=== PATIENT | male | born 1940 | race Asian ===

== ENCOUNTER 2019-11-29 12:37 | Inpatient (IN) | payer OTHER ==
[~2019-11-29] VITALS: Ht 167.6 cm; Wt 59.9 kg
[2019-11-29] MEDS ORDERED: IV NORMAL SALINE 1000 ML BAG IV ONE (12:45)
--- NOTE | 2019-11-29 13:00 | NUR ---
Patient is BROUGHT IN BY [facility] DUE TO COUGHING AND FEVER. PT IS RA, NONVERBAL BUT RESPONSIVE TO PAIN AND TOUCH. Patient is NOT able to follow /comprehend directions. CAME IN VIA GURNEY, NONAMBULATORY. No cardiovascular distress noted. Rate and rhythm are regular. No CP. No respiratory distress noted. Respirations even & unlabored with symmetrical chest rise. +jTUBE,Bowel sounds present and normoactive in all four quadrants.-DISTENTION. PER EMT: REPORTS Fever/Chills. CHRONIC KIDNEY DISEASE,LBM was yesterday. Patient is INcontinent of bowel and bladder function. KEPT WARM DRY AND COMFORTABLE ISOLATION/AIRBORNE/DROPLET PRECAUTIONS APPLIED SRX2 BED AT LOWEST POSITION
[2019-11-29 13:26] LABS: BASOPHILS % (AUTO) 0.5 % (0.0-2.0); EOSINOPHILS # (AUTO) 0.1 K/uL (0.0-0.7); EOSINOPHILS % (AUTO) 2.4 % (0.0-7.0); HEMATOCRIT 29.6 % (36.7-47.1); HEMOGLOBIN 9.8 g/dL (12.5-16.3); LYMPHOCYTES % (AUTO) 21.6 % (20.5-51.5); MEAN CORPUSCULAR HEMOGLOBIN 32.4 uug (23.8-33.4); MEAN CORPUSCULAR HGB CONC 33 g/dL (32.5-36.3); MEAN CORPUSCULAR VOLUME 97.7 fL (73.0-96.2); MONOCYTES # (AUTO) 0.6 K/uL (2.0-10.0); MONOCYTES % (AUTO) 12.6 % (0.0-11.0); NEUTROPHILS % (AUTO) 62.9 % (38.5-71.5); PLATELET COUNT (AUTO) 284 K/uL (152-348); RED BLOOD CELL COUNT(AUTO) 3.03 MIL/uL (4.06-5.63); WHITE BLOOD COUNT (AUTO) 4.8 K/uL (3.6-10.2)
[2019-11-29 13:48] LABS: ALANINE AMINOTRANSFERASE 37 U/L (16-63); ALKALINE PHOSPHATASE 95 U/L (50-136); ASPARTATE AMINOTRANSFERASE 30 U/L (15-37); BILIRUBIN,DIRECT 0.1 mg/dL (0.0-0.2); BILIRUBIN,TOTAL 0.3 mg/dL (0.2-1.0); CARBON DIOXIDE 25 mmol/L (21-32); CHLORIDE 97 mmol/L (98-107); CREATININE 2.3 mg/dL (0.6-1.3); GLUCOSE 188 mg/dL (74-106); POTASSIUM 4.9 mmol/L (3.5-5.1); TOTAL PROTEIN, SERUM 7.7 g/dL (6.4-8.2)
[2019-11-29 13:50] LABS: UREA NITROGEN, BLOOD 83 mg/dL (7-18)
--- NOTE | 2019-11-29 14:24 | NUR ---
PENDING INSURANCE PT STABLE FOR TRANSFER
[2019-11-29] MEDS ORDERED: AZITHROMYCIN IV 500 MG in IV DEXTROSE 5% 250 ML IV ONE (14:30)
[2019-11-29] MEDS ORDERED: CEFTRIAXONE 1 G in IV DEXTROSE 5% 50 ML IV ONE (14:30)
[2019-11-29] MEDS ORDERED: AZITHROMYCIN 500MG/ D5W 250ML IVPB **ER PYXIS ONLY IV ONE (14:32)
[2019-11-29] MEDS ORDERED: CEFTRIAXONE /D5W 50ML IVPB **ER PYXIS IV ONE (14:32)
--- NOTE | 2019-11-29 14:56 | NUR ---
insurance called back. Ok to admit to [facility] ERMD Aware, will call hospitalist Tele Rm Dx: Pneumonia under Carolina Huntley FORKLIFT MATERIAL HANDLER
--- NOTE | 2019-11-29 15:12 | NUR ---
JUANIS AT THE .
--- NOTE | 2019-11-29 15:24 | NUR ---
WAITING FOR CALL BACK FROM TELE FLR DUE TO NURSE ASSIGNMENT PT OK TO ADMIT TO TELE RM 316 DX: PNEUMONIA, POSSIBLE COVID19 UNDER ALCIRA OLIVAREZ Addendum: 11/29/19 at 1528 by TAMMIE WAITING FOR CALL BACK FROM TELE FLR DUE TO NURSE ASSIGNMENT PT OK TO ADMIT TO TELE RM 316 DX: PNEUMONIA, POSSIBLE COVID19 UNDER DR GUILLORY
--- NOTE | 2019-11-29 15:35 | NUR ---
HAND OFF AND SBAR GIVEN TO VIRA SCRUGGS
[2019-11-29] MEDS ORDERED: ACETAMINOPHEN 325 MG TABLET GT PRN (15:45)
[2019-11-29] MEDS ORDERED: ONDANSETRON 4 MG/2 ML VIAL IV PRN (16:00)
[2019-11-29] MEDS ORDERED: IV NS 1000 ML 1,000 ML IV PRN (16:00)
--- NOTE | 2019-11-29 16:00 | NUR ---
Transported to floor all belongings accounted for, list cosigned
--- NOTE | 2019-11-29 16:10 | NUR ---
Received patient in bed, transferred from ER via stretcher accompanied by Sharlene CONSTANTINO. Patient awake but does not respond to questions and commands. On RA sat 97%. IV site left AC 20g running Azithromycin from ER. Bilateral upper extremities are rigid. Gtube on right abdomen in place, aspirated, flushed and patent. Sacrum excoriation noted on left sacrum, picture taken and placed in chart. Cleaned and Mepilex applied. Will order wound consult. Villegas catheter in place draining 500 mL clear yellow urine. Bed locked in lowest position with siderails 2x up. Call light within reach. Will continue to monitor.
[2019-11-29 17:03] VITALS: BP 121/71
[2019-11-29] MEDS ORDERED: GLUCERNA 1.2 1000ML LIQUID GT SCH (20:15)
[2019-11-29] MEDS ORDERED: DOCUSATE SODIUM 100 MG CAPSULE PO SCH (21:00)
[2019-11-29 21:32] VITALS: BP 148/67
--- NOTE | 2019-11-29 22:00 | NUR ---
Received patient awake in bed, nonverbal. Arouses to name and touch. No distress noted. On contact/droplet precaution for r/o COVID. Patient has g-tube flushes well. IVF running on the left AC. notified Dr. Siddiqui about patient temp 102.3 ordered STAT blood culture. When gas plant worker came, says he's not allowed to go into COVID rooms. Explained that I have not drawn blood before, but gas plant worker refused to go in. I attempted multiple times to do blood culture, but patient veins kept blowing, told gas plant worker, but he still did not want to go into room. Endorse to Dr. Siddiqui that was unable to get blood culture, patients temp went down to 101 on its own, applied cooling measures, will reassess. Dr. Siddiqui also ordered to start Zosyn 2.25gm. Safety measures initiated. Will continue to monitor.
[2019-11-29] MEDS: ATORVASTATIN 10 MG TABLET GT SCH (22:39)
[2019-11-29] MEDS: DOCUSATE SODIUM 100 MG/10 ML LIQUID UDC GT SCH (22:39)
[2019-11-29] MEDS: CARVEDILOL 3.125 MG TABLET GT SCH (22:39)
[2019-11-29] MEDS ORDERED: PIPERACILLIN/TAZOBACTAM/D5W 100 ML ONE (23:15)
[2019-11-29 23:32] LABS: *BILIRUBIN,URIN NEGATIVE (NEGATIVE); *BLOOD, URINE 1+ (NEGATIVE); *CLARITY,URINE CLEAR (CLEAR); *COLOR,URINE YELLOW (YELLOW); *KETONES,URINE NEGATIVE (NEGATIVE); *UROBILINOGEN,URINE 0.2 E.U./dl (NORMAL); LEUKOCYTE ESTERASE ,URINE NEGATIVE (NEGATIVE); NITRITE, URINE NEGATIVE (NEGATIVE); UGLUCOSE NEGATIVE (NEGATIVE)
[2019-11-29] MEDS: PIPERACILLIN/TAZO 2.25 G in IV DEXTROSE 5% 50 ML IV SCH (23:32)
[2019-11-29 23:47] LABS: BACTERIA,URINE NONE SEEN /HPF (NONE SEEN); RBC,URINE 20-50 /HPF (0-3); SQUAMOUS EPITHELIAL CELL,UR FEW /HPF (NONE SEEN); WBC,URINE 0-3 /HPF (0-3)
[2019-11-30] VITALS: BP 156/64
[2019-11-30] MEDS ORDERED: PIPERACILLIN/TAZO 2.25 G in IV DEXTROSE 5% 50 ML IV SCH ×2
--- NOTE | 2019-11-30 00:50 | NUR ---
Patient still with temp of 101.4 after cooling measures were implemented, administered PRN Tylenol. Other vitals WNL. Will continue to monitor.
--- NOTE | 2019-11-30 01:49 | NUR ---
Dr. Siddiqui also notified about continuing GT feeding from SNF. Started at 2240, checked residual was 5cc, tolerating well.
[2019-11-30 04:00] VITALS: BP 139/45
[2019-11-30] MEDS: PIPERACILLIN/TAZO 2.25 G in IV DEXTROSE 5% 50 ML IV SCH (05:25)
--- NOTE | 2019-11-30 06:28 | NUR ---
Patient slept well, no distress noted. Turned and repositioned patient. IVF infusing well on the left AC. Tolerating tube feeding. Vitals WNL. No fever after Tylenol given. Will endorse to next shift.
[2019-11-30] MEDS ORDERED: GLUCERNA 1.2 1000ML LIQUID GT PRN (07:07)
[2019-11-30 07:11] LABS: BASOPHILS % (AUTO) 0.4 % (0.0-2.0); EOSINOPHILS % (AUTO) 0.6 % (0.0-7.0); HEMATOCRIT 27.9 % (36.7-47.1); HEMOGLOBIN 9.5 g/dL (12.5-16.3); LYMPHOCYTES # (AUTO) 1.2 K/uL (20.0-40.0); LYMPHOCYTES % (AUTO) 27.3 % (20.5-51.5); MEAN CORPUSCULAR HEMOGLOBIN 33.2 uug (23.8-33.4); MEAN CORPUSCULAR HGB CONC 34 g/dL (32.5-36.3); MEAN CORPUSCULAR VOLUME 97.7 fL (73.0-96.2); MONOCYTES # (AUTO) 0.5 K/uL (2.0-10.0); MONOCYTES % (AUTO) 11.8 % (0.0-11.0); NEUTROPHILS # (AUTO) 2.7 K/uL (1.8-8.9); NEUTROPHILS % (AUTO) 59.9 % (38.5-71.5); PLATELET COUNT (AUTO) 249 K/uL (152-348); RED BLOOD CELL COUNT(AUTO) 2.85 MIL/uL (4.06-5.63); WHITE BLOOD COUNT (AUTO) 4.6 K/uL (3.6-10.2)
[2019-11-30 07:37] LABS: IRON, SERUM 18 ug/dL (50-175)
[2019-11-30 08:00] VITALS: BP 126/48
[2019-11-30 08:00] LABS: ALANINE AMINOTRANSFERASE 31 U/L (16-63); ALKALINE PHOSPHATASE 76 U/L (50-136); ASPARTATE AMINOTRANSFERASE 40 U/L (15-37); BILIRUBIN,TOTAL 0.3 mg/dL (0.2-1.0); CARBON DIOXIDE 23 mmol/L (21-32); CHLORIDE 100 mmol/L (98-107); CHOLESTEROL 133 mg/dL (<200); CREATININE 2.2 mg/dL (0.6-1.3); GLUCOSE 196 mg/dL (74-106); HDL CHOLESTEROL 25 mg/dL (40-60); MAGNESIUM 2.6 mg/dL (1.8-2.4); PHOSPHOROUS 4.2 mg/dL (2.5-4.9); POTASSIUM 4.5 mmol/L (3.5-5.1); TOTAL PROTEIN, SERUM 7.3 g/dL (6.4-8.2); TRIGLYCERIDES 621 MG/DL (30-150); UREA NITROGEN, BLOOD 70 mg/dL (7-18)
--- NOTE | 2019-11-30 08:00 | NUR ---
Received pt. resting in bed oriented to self. Pt. has IV in L AC 20 gauge intact patent running prescribed fluids. Pt. appears in no distress/ pain. Pt. has elevated temperature of 101. 2 provided pt. with tylenol and started cooling measures. rteviño catheter in place draining clear yellow urine. Pt. O2 Saturating at 93 RA. Will put pt. on NC to keep O2 saturation elevated. G tube in place patent <5 cc of residual running glucerna 1.2. Sputum culture done and sent to lab, ABG done, Chest XR done. Safety measures in place. call light within reach. will continue to monitor pt.
[2019-11-30 08:56] LABS: THYROID STIMULATING HORMONE 0.444 mIU/mL (0.358-3.740)
[2019-11-30] MEDS ORDERED: Medication Not On Formulary EA (Ferrous Sulfate 330 MG) GT SCH (09:00)
[2019-11-30] MEDS ORDERED: Medication Not On Formulary EA (Multivitamins (Multivitamin) 1 TAB) GT SCH (09:00)
[2019-11-30 09:09] LABS: ABG BASE EXCESS -3.4 mmol/L; ABG HCO3 20.8 mmol/L; ABG PCO2 33.8 mmHg (35.0-45.0); ABG PH 7.406 (7.350-7.450); ABG PO2 71.3 mmHg (75.0-100.0); ABG SITE RIGHT RADIAL; ABG TOTAL HEMOGLOBIN 9.5 G/dL (13.5-18.0); COHb 0.9 % (0.5-1.5); MetHb 0.3 % (0.0-1.5); O2Hb 91.7 % (94.0-97.0); VENT MODE room air
[2019-11-30] MEDS: MULTIVITAMINS,THERAPEUTIC TABLET GT SCH (09:36)
[2019-11-30] MEDS: ASPIRIN 325 MG TABLET GT SCH (09:36)
[2019-11-30] MEDS: PANTOPRAZOLE ORAL SUSPENSION 40 MG SUSPDR.PKT GT SCH (09:36)
[2019-11-30] MEDS: GABAPENTIN 100 MG CAPSULE GT SCH (09:36)
[2019-11-30] MEDS: CARVEDILOL 3.125 MG TABLET GT SCH ×2 (09:36→20:42)
[2019-11-30] MEDS: FERROUS SULFATE 300 MG/5 ML LIQUID UDC GT SCH (09:37)
[2019-11-30] MEDS: ACETAMINOPHEN 650 MG/20.3 ML LIQUID UDC GT PRN ×2 (09:37→20:37)
--- NOTE | 2019-11-30 11:39 | NUR ---
Pt. does not have fever anymore temperature taken after an hour at 97.8. BP is low at 94/[address] Siddiqui. Awaiting response.
[2019-11-30] MEDS ORDERED: DEXTROSE 50% 50 ML DISP.SYRIN IV PRN (12:00)
[2019-11-30] MEDS ORDERED: IV NORMAL SALINE 500 ML IV ONE (12:00)
[2019-11-30] MEDS: BLOOD SUGAR DIAGNOSTIC 1 EACH STRIP VI SCH ×2 (12:36→17:50)
[2019-11-30] MEDS: INSULIN REGULAR, HUMAN 300 UNIT/3 ML VIAL SQ PRN ×2 (12:45→18:24)
[2019-11-30] MEDS: PIPERACILLIN/TAZOBACTAM/D5W 3.375 G in PREMIXED 1 EACH IV SCH ×2 (13:15→22:31)
[2019-11-30] MEDS: IV NS 1000 ML 1,000 ML IV PRN (13:18)
[2019-11-30 16:00] VITALS: BP 125/47
--- NOTE | 2019-11-30 17:51 | NUR ---
Speech Therapist examined pt. around 1420 for swallow evaluation per Speech Therapist pt. was coughing. Around 1620 Pt. O2 saturation at 89% on venturi mask 28%. Respiratory Therapist examined pt. and increased venturi mask to 55% O2 saturation increased to low 90s. Pt. now on 100% non rebreather mask saturating at 92-94%. Dr. Artur trejo ordered ABGs and chest x ray. RT suctioned pt. At 1730 O2 saturation on 100% non rebreather at 95-96%. Dr. Artur trejo. Instructed to contact Dr. Novak. Will call Dr. Novak. Addendum: 11/30/19 at 1752 by JULIET DAUGHERTY RN Wrong Pt. Notes written are for a different pt. Does not apply to pt in room 316
[2019-11-30 20:15] VITALS: BP 136/45
[2019-11-30] MEDS: ATORVASTATIN 10 MG TABLET GT SCH (20:37)
[2019-11-30] MEDS: DOCUSATE SODIUM 100 MG/10 ML LIQUID UDC GT SCH (20:42)
[2019-12-01 00:15] VITALS: BP 135/54
[2019-12-01] MEDS: BLOOD SUGAR DIAGNOSTIC 1 EACH STRIP VI SCH ×4 (00:50→17:06)
[2019-12-01] MEDS: INSULIN REGULAR, HUMAN 300 UNIT/3 ML VIAL SQ PRN ×4 (01:08→17:08)
[2019-12-01] MEDS: IV NS 1000 ML 1,000 ML IV PRN ×2 (03:51→20:29)
[2019-12-01 04:12] VITALS: BP 135/60
[2019-12-01] MEDS: PIPERACILLIN/TAZOBACTAM/D5W 3.375 G in PREMIXED 1 EACH IV SCH ×3 (05:33→21:16)
[2019-12-01] MEDS: ACETAMINOPHEN 650 MG/20.3 ML LIQUID UDC GT PRN (05:33)
[2019-12-01 06:30] LABS: BASOPHILS % (AUTO) 0.3 % (0.0-2.0); MONOCYTES # (AUTO) 0.5 K/uL (2.0-10.0); WHITE BLOOD COUNT (AUTO) 4.7 K/uL (3.6-10.2)
[2019-12-01 06:43] LABS: EOSINOPHILS % (AUTO) 0.5 % (0.0-7.0); LYMPHOCYTES # (AUTO) 0.8 K/uL (20.0-40.0); LYMPHOCYTES % (AUTO) 17.2 % (20.5-51.5); MEAN CORPUSCULAR HEMOGLOBIN 33.5 uug (23.8-33.4); MEAN CORPUSCULAR HGB CONC 34 g/dL (32.5-36.3); MEAN CORPUSCULAR VOLUME 97.9 fL (73.0-96.2); MONOCYTES % (AUTO) 9.7 % (0.0-11.0); NEUTROPHILS # (AUTO) 3.4 K/uL (1.8-8.9); NEUTROPHILS % (AUTO) 72.3 % (38.5-71.5); PLATELET COUNT (AUTO) 202 K/uL (152-348); RED BLOOD CELL COUNT(AUTO) 2.51 MIL/uL (4.06-5.63)
[2019-12-01 06:44] LABS: HEMATOCRIT 24.5 % (36.7-47.1); HEMOGLOBIN 8.4 g/dL (12.5-16.3)
[2019-12-01 06:49] LABS: ALANINE AMINOTRANSFERASE 29 U/L (16-63); ALKALINE PHOSPHATASE 89 U/L (50-136); ASPARTATE AMINOTRANSFERASE 38 U/L (15-37); BILIRUBIN,TOTAL 0.3 mg/dL (0.2-1.0); CARBON DIOXIDE 23 mmol/L (21-32); CHLORIDE 109 mmol/L (98-107); CREATINE KINASE, TOTAL 690 U/L (39-308); CREATININE 1.8 mg/dL (0.6-1.3); GLUCOSE 198 mg/dL (74-106); MAGNESIUM 2.3 mg/dL (1.8-2.4); POTASSIUM 4.9 mmol/L (3.5-5.1); TOTAL PROTEIN, SERUM 6.7 g/dL (6.4-8.2); UREA NITROGEN, BLOOD 55 mg/dL (7-18)
[2019-12-01 07:20] LABS: FERRITIN 2429 ng/mL (26-388)
--- NOTE | 2019-12-01 08:30 | NUR ---
Received pt. resting in bed in semi fowlers position eyes open. Pt. appears in no distress/ pain. Pt. appears with no SOB/ difficulty breathing. Pt. on 1 L NC. IV in L AC 20 gauge intact patent running prescribed fluid. Pt. on tele monitor sinus rhythm. Villegas catheter in place draining clear yellow urine. Pt. had BM last night. G tube in place. Abdomen non tender, active bowel sounds. pt. does not have a fever at this time. Applied cooling towel to forehead for preventative measures. safety measures in place. call light within reach. will continue to monitor pt.
[2019-12-01] MEDS: MULTIVITAMINS,THERAPEUTIC TABLET GT SCH (08:59)
[2019-12-01] MEDS: GABAPENTIN 100 MG CAPSULE GT SCH (08:59)
[2019-12-01] MEDS: FERROUS SULFATE 300 MG/5 ML LIQUID UDC GT SCH (08:59)
[2019-12-01] MEDS: PANTOPRAZOLE ORAL SUSPENSION 40 MG SUSPDR.PKT GT SCH (08:59)
[2019-12-01] MEDS: ASPIRIN 325 MG TABLET GT SCH (08:59)
[2019-12-01] MEDS: CARVEDILOL 3.125 MG TABLET GT SCH (09:00)
[2019-12-01 09:51] VITALS: BP 114/51
--- NOTE | 2019-12-01 10:51 | NUR ---
WOUND CARE CONSULT: REVIEWED CHART, NURSING DOCUMENTATION INCLUDING PHOTOS WHICH SHOW SACRAL WOUND, AT LEAST PARTIAL THICKNESS, WHICH EXTENDS TO BUTTOCKS, PRESENT ON ADMISSION. RECOMMENDATIONS MADE FOR WOUND CARE AND SKIN PROTECTION. DISCUSSED WITH NURSING STAFF. FIRST STEP LOW AIRLOSS MATTRESS ORDERED. MD IN AGREEMENT WITH PLAN OF CARE.
[2019-12-01] MEDS ORDERED: Z GUARD REMEDY PASTE 57 GM TUBE TOP PRN (11:00)
--- NOTE | 2019-12-01 11:40 | NUR ---
Attempted to take pt. off [address] Novak. Pt. saturating in low 90s. 90-92 on Room Air. Put pt. back on 1 L NC. Pt. saturation is at 96-97% on 1 L. Pt. had BM. Cleaned pt. with SUPPLIER SPECIALIST. Pt. is warm to touch, no fever. temperature at 98 F. Applied new cooling towel for preventative measures. BP is low systolic in low 90s- high 80s. Diastolic in 40s. Legs elevated. Dr. Siddiqui aware. NS bolus of 500 cc ordered.
[2019-12-01 11:58] VITALS: BP 95/40
[2019-12-01] MEDS ORDERED: IV NORMAL SALINE 500 ML IV ONE (12:15)
--- NOTE | 2019-12-01 14:21 | NUR ---
Pt. on 1L saturating in low 90s highest 92. Elevated Nasal Canula to 2L pt. saturating in mid 90s 94-96%. Pt. has non productive cough. Suctioning as needed. Clear secretions noted. pt. does not have temperature. Cool cloth on forehead for prevention. BP is 104/70 and 106/45 post [address] Siddiqui on updated BP. No new orders. Pt. appears comfortable. Safety measures in place. will continue to monitor pt.
[2019-12-01 16:23] VITALS: BP 113/66
--- NOTE | 2019-12-01 18:56 | NUR ---
Throughout shift pt. did not have a temperature. pt. O2 saturation on 2 L ranging from 92-95%. Pt. does have productive cough, suctioned pt. as needed. Small amount of white secretions suctioned <5 cc. pt. appears resting comfortably. safety measures in place. will endorse to pm nurse
[2019-12-01 19:02] VITALS: BP 124/54
[2019-12-01] MEDS: ATORVASTATIN 10 MG TABLET GT SCH (20:27)
[2019-12-01] MEDS: DOCUSATE SODIUM 100 MG/10 ML LIQUID UDC GT SCH (20:28)
[2019-12-01] MEDS: Z GUARD REMEDY PASTE 57 GM TUBE TOP SCH (20:28)
[2019-12-02] VITALS (12 sets, daily range): BP systolic 114–136; BP diastolic 51–85
--- NOTE | 2019-12-02 00:09 | NUR ---
patient vomited, abdomen is distended, still having loose BM. Cough noted, suctioned the nasopharynx and mouth, oral care done. Stopped the feeding for now. Per Sharon Herrera, TREATMENT SPECIALIST, order chest xray and hold the the feeding until morning rounds. Current temp 102.3, will give tylenol
[2019-12-02] MEDS: ACETAMINOPHEN 650 MG/20.3 ML LIQUID UDC GT PRN ×3 (00:22→21:25)
[2019-12-02] MEDS: BLOOD SUGAR DIAGNOSTIC 1 EACH STRIP VI SCH ×5 (00:42→23:35)
[2019-12-02] MEDS: INSULIN REGULAR, HUMAN 300 UNIT/3 ML VIAL SQ PRN ×3 (00:43→23:39)
[2019-12-02] MEDS: HYDROXYCHLOROQUINE SULFATE 200 MG TABLET PEG SCH ×2 (04:11→09:03)
[2019-12-02] MEDS: PIPERACILLIN/TAZOBACTAM/D5W 3.375 G in PREMIXED 1 EACH IV SCH ×3 (06:09→21:25)
[2019-12-02] MEDS: MULTIVITAMINS,THERAPEUTIC TABLET GT SCH (09:02)
[2019-12-02] MEDS: FERROUS SULFATE 300 MG/5 ML LIQUID UDC GT SCH (09:02)
[2019-12-02] MEDS: ASPIRIN 81 MG TAB.CHEW GT SCH (09:02)
[2019-12-02] MEDS: PANTOPRAZOLE ORAL SUSPENSION 40 MG SUSPDR.PKT GT SCH (09:02)
[2019-12-02] MEDS: GABAPENTIN 100 MG CAPSULE GT SCH (09:02)
[2019-12-02] MEDS: Z GUARD REMEDY PASTE 57 GM TUBE TOP SCH ×2 (09:03→22:19)
--- NOTE | 2019-12-02 09:30 | NUR ---
Patient noted to have distended belly, and temp of 100 F. Patient restless, and taking off clothes. Patient repositioned and made comfortable. Small amount of fluid given with medications. Patient tolerated well.
[2019-12-02 10:07] LABS: BASOPHILS % (AUTO) 0.3 % (0.0-2.0); EOSINOPHILS % (AUTO) 0.3 % (0.0-7.0); HEMATOCRIT 26.5 % (36.7-47.1); HEMOGLOBIN 8.6 g/dL (12.5-16.3); LYMPHOCYTES # (AUTO) 1.2 K/uL (20.0-40.0); LYMPHOCYTES % (AUTO) 18.2 % (20.5-51.5); MEAN CORPUSCULAR HEMOGLOBIN 32.4 uug (23.8-33.4); MEAN CORPUSCULAR HGB CONC 33 g/dL (32.5-36.3); MEAN CORPUSCULAR VOLUME 99.7 fL (73.0-96.2); MONOCYTES # (AUTO) 0.6 K/uL (2.0-10.0); MONOCYTES % (AUTO) 9.2 % (0.0-11.0); NEUTROPHILS # (AUTO) 4.6 K/uL (1.8-8.9); PLATELET COUNT (AUTO) 186 K/uL (152-348); RED BLOOD CELL COUNT(AUTO) 2.66 MIL/uL (4.06-5.63); WHITE BLOOD COUNT (AUTO) 6.4 K/uL (3.6-10.2)
[2019-12-02 11:27] LABS: CARBON DIOXIDE 21 mmol/L (21-32); CHLORIDE 113 mmol/L (98-107); FERRITIN 2718 ng/mL (26-388); GLUCOSE 167 mg/dL (74-106); LACTATE DEHYDROGENASE 412 U/L (85-227); MAGNESIUM 2.4 mg/dL (1.8-2.4); PHOSPHOROUS 2.9 mg/dL (2.5-4.9); POTASSIUM 4.6 mmol/L (3.5-5.1); UREA NITROGEN, BLOOD 45 mg/dL (7-18)
[2019-12-02] MEDS: IV NS 1000 ML 1,000 ML IV PRN ×2 (11:50→18:23)
[2019-12-02 16:55] LABS: ABG BASE EXCESS -8.2 mmol/L; ABG HCO3 15.4 mmol/L; ABG PCO2 25.5 mmHg (35.0-45.0); ABG PH 7.398 (7.350-7.450); ABG PO2 62.6 mmHg (75.0-100.0); ABG SITE RIGHT RADIAL; ABG TOTAL HEMOGLOBIN 9.8 G/dL (13.5-18.0); COHb 0.6 % (0.5-1.5); MetHb 0.2 % (0.0-1.5); O2Hb 90.8 % (94.0-97.0); VENT MODE Nasal Cannula
--- NOTE | 2019-12-02 17:00 | NUR ---
First call to Alcohol And Drug Counselor Dr. Novak to report resulted ABG's ordered by Sugar Mill Worker Dr. Shelton at this time unable to speak or have a call through to exchange the call drops X2 20 minutes apart. Chain of command follow and supervisor slashing department called to make contact with
--- NOTE | 2019-12-02 17:26 | NUR ---
Patient down from room 316 accompanied by 2 rn's. HR. of 97, 133/75. Saturation of 70 and below tachypnea, patient on nasal canula 3L. Patient cold to touch with labor breathing, cyanotic and mottled. Electrical Control Assembler present and talking to pt's daughter.
--- NOTE | 2019-12-02 17:31 | NUR ---
Grain Loader Dr. Shelton in the unit upon patient arrival and aware of troponin and pt's current condition. At this time spoke with pt's daughter on the phone and informed her of care plan and her father's current deteriorating condition. As reported by . continue with care plan with no heroic measures.
--- NOTE | 2019-12-02 17:57 | NUR ---
At this time spoke with Dr. Novak and inform him of recent ABG's. Orders to continue with current care plan received informed of pt's daughter decision to continue with DNR/DNI with no heroic measures as told to Dr. Shelton.
--- NOTE | 2019-12-02 18:48 | NUR ---
Patient left on NC 6L and SM 8 Liter with saturation above 95%. Hemodinamically stable. afebrile.
--- NOTE | 2019-12-02 19:45 | NUR ---
Received pt resting in bed, droplet precautions noted. Pt on NC 6L and SM 8L/min, O2 sats up to 98%. No acute distress noted. NSR on monitor. F/C in place. Safety precautions maintained. VSS, afebrile. Skin assessment done. Pt turned and repositioned. Continue antibiotic therapy. Continue plan of care.
[2019-12-02] MEDS: DOCUSATE SODIUM 100 MG/10 ML LIQUID UDC GT SCH (21:24)
[2019-12-02] MEDS: MORPHINE SULFATE 2 MG/1 ML DISP.SYRIN IV PRN (21:26)
--- NOTE | 2019-12-02 21:30 | NUR ---
Pt had episode of minimal emesis noted. HOB remains elevated. Medicated with Zofran for nausea/vomiting. Continue to monitor pt.
[2019-12-02 23:19] LABS: *OCCULT BLOOD STOOL POSITIVE (NEGATIVE)
[2019-12-02] MEDS: ATORVASTATIN 10 MG TABLET GT SCH (23:19)
[2019-12-03] VITALS (24 sets, daily range): BP systolic 101–147; BP diastolic 29–81
--- NOTE | 2019-12-03 | NUR ---
No vomiting noted at this time. HOB elevated maintained. Pt resting comfortably in bed. VSS, afebrile. Continue to monitor.
[2019-12-03] MEDS: MORPHINE SULFATE 2 MG/1 ML DISP.SYRIN IV PRN ×4 (01:43→20:42)
--- NOTE | 2019-12-03 02:30 | NUR ---
Pt awake with sudden labored breathing. BP: 147/81, RR 40, HR 133, O2 at 82% via 4L NC. HOB elevated. Placed nonrebreather mask 15L/min. O2 sats went up to 92-93%. Paged EPIC senior fire protection engineer, DEVIKA ELI. New orders received, ABG and CXR stat. Continue to monitor closely.
[2019-12-03] MEDS ORDERED: MORPHINE SULFATE 2 MG/1 ML DISP.SYRIN IV ONE (02:45)
[2019-12-03 03:37] LABS: ABG HCO3 13.3 mmol/L; ABG PCO2 25.2 mmHg (35.0-45.0); ABG PH 7.341 (7.350-7.450); ABG PO2 114.5 mmHg (75.0-100.0); ABG SITE RIGHT RADIAL; ABG TOTAL HEMOGLOBIN 9.6 G/dL (13.5-18.0); COHb 0.3 % (0.5-1.5); MetHb 0.2 % (0.0-1.5); O2Hb 97.9 % (94.0-97.0)
[2019-12-03] MEDS: PIPERACILLIN/TAZOBACTAM/D5W 3.375 G in PREMIXED 1 EACH IV SCH ×3 (05:23→21:25)
[2019-12-03] MEDS: BLOOD SUGAR DIAGNOSTIC 1 EACH STRIP VI SCH ×4 (05:23→23:07)
--- NOTE | 2019-12-03 05:40 | NUR ---
Received pt resting in bed, pt on nonrebreather 15L/min. O2 sats up to 100%. Pt unable to follow commands but withdraws to painful stimuli. NSR on monitor. Pt running NS at 60 cc/hr. VSS, afebrile. Droplet precautions maintained. HOB elevated. Pt turned and repositioned. Skin check done. Safety precautions, no acute distress noted. Continue antibiotic therapy. Continue plan of care. Addendum: 12/04/19 at 0543 by MARICARMEN YUN RN WRONG DATE AND TIME PLEASE DISREGARD FOR 12/03/191944
[2019-12-03] MEDS ORDERED: HYDROXYCHLOROQUINE SULFATE 200 MG TABLET PEG SCH (06:00)
[2019-12-03] MEDS: INSULIN REGULAR, HUMAN 300 UNIT/3 ML VIAL SQ PRN ×2 (06:09→23:09)
--- NOTE | 2019-12-03 06:19 | NUR ---
AM care rendered. Pt kept clean and dry. Pt turned and repositioned. Pt on nonrebreather 15L/min with O2 sats up to 100%. Placed on simple mask 10L but pt did not tolerate and desated to 84%. PORTFOLIO SPECIALISTWander, made aware. Nonrebreather back on. NSR on monitor. No acute distress noted. Pt OB stool positive. No s/s of bleeding noted on shift. Moderate amount BM x2, color greenish - brown. F/C in place. HOB elevated maintained. Safety precautions observed. NPO diet. VSS, afebrile. Continue to monitor. Continue plan of care. Addendum: 12/03/19 at 0629 by MARICARMEN YUN RN Certified Genetic Counselor aware of midline insertion order. Continue plan of care.
[2019-12-03 07:41] LABS: BASOPHILS % (AUTO) 0.3 % (0.0-2.0); EOSINOPHILS % (AUTO) 0.1 % (0.0-7.0); HEMOGLOBIN 8.7 g/dL (12.5-16.3); LYMPHOCYTES # (AUTO) 0.5 K/uL (20.0-40.0); LYMPHOCYTES % (AUTO) 10.3 % (20.5-51.5); MEAN CORPUSCULAR HEMOGLOBIN 31.9 uug (23.8-33.4); MEAN CORPUSCULAR HGB CONC 32 g/dL (32.5-36.3); MEAN CORPUSCULAR VOLUME 99.2 fL (73.0-96.2); MONOCYTES # (AUTO) 0.4 K/uL (2.0-10.0); MONOCYTES % (AUTO) 8.3 % (0.0-11.0); NEUTROPHILS # (AUTO) 4.3 K/uL (1.8-8.9); PLATELET COUNT (AUTO) 174 K/uL (152-348); RED BLOOD CELL COUNT(AUTO) 2.72 MIL/uL (4.06-5.63); WHITE BLOOD COUNT (AUTO) 5.3 K/uL (3.6-10.2)
--- NOTE | 2019-12-03 08:00 | NUR ---
Pulmonary services, Dr. Novak in the unit to see and examine patient, full report given see orders.
[2019-12-03 08:09] LABS: ALANINE AMINOTRANSFERASE 25 U/L (16-63); ALKALINE PHOSPHATASE 47 U/L (50-136); ASPARTATE AMINOTRANSFERASE 73 U/L (15-37); BILIRUBIN,TOTAL 0.3 mg/dL (0.2-1.0); CARBON DIOXIDE 21 mmol/L (21-32); CHLORIDE 115 mmol/L (98-107); CREATININE 2.2 mg/dL (0.6-1.3); GLUCOSE 150 mg/dL (74-106); MAGNESIUM 2.4 mg/dL (1.8-2.4); PHOSPHOROUS 2.9 mg/dL (2.5-4.9); POTASSIUM 4.7 mmol/L (3.5-5.1); TOTAL PROTEIN, SERUM 6.6 g/dL (6.4-8.2); UREA NITROGEN, BLOOD 43 mg/dL (7-18)
[2019-12-03] MEDS: MULTIVITAMINS,THERAPEUTIC TABLET GT SCH (08:18)
[2019-12-03] MEDS: FERROUS SULFATE 300 MG/5 ML LIQUID UDC GT SCH (08:18)
[2019-12-03] MEDS: GABAPENTIN 100 MG CAPSULE GT SCH (08:18)
[2019-12-03] MEDS: PANTOPRAZOLE ORAL SUSPENSION 40 MG SUSPDR.PKT GT SCH (08:18)
[2019-12-03] MEDS: ASPIRIN 81 MG TAB.CHEW GT SCH (08:18)
[2019-12-03] MEDS: Z GUARD REMEDY PASTE 57 GM TUBE TOP SCH ×2 (08:19→20:08)
--- NOTE | 2019-12-03 08:30 | NUR ---
a call from pt's daughter Ms. Dias Champ she was update on her dad's current condition and care plan.
--- NOTE | 2019-12-03 13:57 | NUR ---
Cardiology services, Dr. Shelton in the unit to see and examine patient.
[2019-12-03] MEDS: IV NS 1000 ML 1,000 ML IV PRN (14:24)
[2019-12-03] MEDS ORDERED: TOCILIZUMAB 400 MG in IV NORMAL SALINE 80 ML IV ONE (15:15)
[2019-12-03 16:09] LABS: FERRITIN 2659 ng/mL (26-388); LACTATE DEHYDROGENASE 588 U/L (85-227)
--- NOTE | 2019-12-03 19:45 | NUR ---
Received pt resting in bed, pt on nonrebreather 15L/min. O2 sats up to 100%. Pt unable to follow commands but withdraws to painful stimuli. NSR on monitor. Pt running NS at 60 cc/hr. VSS, afebrile. Droplet precautions maintained. HOB elevated. Pt turned and repositioned. Skin check done. Safety precautions, no acute distress noted. Continue antibiotic therapy. Continue plan of care.
[2019-12-03] MEDS: ATORVASTATIN 10 MG TABLET GT SCH (20:07)
[2019-12-03] MEDS: DOCUSATE SODIUM 100 MG/10 ML LIQUID UDC GT SCH (20:08)
[2019-12-03] MEDS: ACETAMINOPHEN 650 MG/20.3 ML LIQUID UDC GT PRN (20:42)
[2019-12-04] VITALS (15 sets, daily range): BP systolic 0–139; BP diastolic 0–74
[2019-12-04] MEDS: MORPHINE SULFATE 2 MG/1 ML DISP.SYRIN IV PRN ×2 (03:14→08:19)
[2019-12-04] MEDS: ACETAMINOPHEN 650 MG/20.3 ML LIQUID UDC GT PRN (03:38)
[2019-12-04] MEDS: BLOOD SUGAR DIAGNOSTIC 1 EACH STRIP VI SCH ×3 (05:20→16:18)
[2019-12-04] MEDS: PIPERACILLIN/TAZOBACTAM/D5W 3.375 G in PREMIXED 1 EACH IV SCH ×2 (05:21→13:34)
[2019-12-04] MEDS: INSULIN REGULAR, HUMAN 300 UNIT/3 ML VIAL SQ PRN (05:21)
[2019-12-04 05:32] LABS: BASOPHILS % (AUTO) 0.2 % (0.0-2.0); EOSINOPHILS % (AUTO) 0.2 % (0.0-7.0); HEMATOCRIT 26.7 % (36.7-47.1); HEMOGLOBIN 8.6 g/dL (12.5-16.3); LYMPHOCYTES # (AUTO) 0.6 K/uL (20.0-40.0); MEAN CORPUSCULAR HEMOGLOBIN 32.4 uug (23.8-33.4); MEAN CORPUSCULAR HGB CONC 32 g/dL (32.5-36.3); MEAN CORPUSCULAR VOLUME 100.6 fL (73.0-96.2); MONOCYTES # (AUTO) 0.5 K/uL (2.0-10.0); MONOCYTES % (AUTO) 7.6 % (0.0-11.0); NEUTROPHILS # (AUTO) 5.9 K/uL (1.8-8.9); PLATELET COUNT (AUTO) 172 K/uL (152-348); RED BLOOD CELL COUNT(AUTO) 2.66 MIL/uL (4.06-5.63); WHITE BLOOD COUNT (AUTO) 7.1 K/uL (3.6-10.2)
--- NOTE | 2019-12-04 05:43 | NUR ---
AM care rendered. Pt had episode of desaturation during the night, O2 sats went down to 89%. Supplemental NC provided to 4L, pt up to 100%. Pt remains on nonrebreather 15L/min with O2 sats up to 99%. No acute distress noted at this time. Pt kept clean and dry, pt turned and repositioned. No new skin breakdown. VSS, afebrile. No s/s of bleeding. No n/v during the night. Droplet precautions maintained. NPO diet. Continue antibiotic therapy. Continue plan of care.
[2019-12-04 06:20] LABS: CARBON DIOXIDE 17 mmol/L (21-32); CHLORIDE 120 mmol/L (98-107); CREATININE 2.6 mg/dL (0.6-1.3); FERRITIN 2526 ng/mL (26-388); GLUCOSE 160 mg/dL (74-106); LACTATE DEHYDROGENASE 599 U/L (85-227); MAGNESIUM 2.4 mg/dL (1.8-2.4); POTASSIUM 4.8 mmol/L (3.5-5.1); UREA NITROGEN, BLOOD 46 mg/dL (7-18)
[2019-12-04 06:40] LABS: ABG BASE EXCESS -8.7 mmol/L; ABG PCO2 30.4 mmHg (35.0-45.0); ABG PO2 139.6 mmHg (75.0-100.0); ABG SITE LEFT BRACHIAL; ABG TOTAL HEMOGLOBIN 9.5 G/dL (13.5-18.0); COHb 0.6 % (0.5-1.5); MetHb 0.4 % (0.0-1.5); O2Hb 98.1 % (94.0-97.0)
[2019-12-04 08:06] LABS: A/G RATIO 0.7 (0.7-1.7); ALBUMIN 2.5 g/dL (2.9-4.4); ALPHA-1-GLOBULIN 0.2 g/dL (0.0-0.4); ALPHA-2-GLOBULIN 1.1 g/dL (0.4-1.0); BETA GLOBULIN 0.9 g/dL (0.7-1.3); GAMMA GLOBULIN 1.1 g/dL (0.4-1.8); GLOBULIN, TOTAL 3.4 g/dL (2.2-3.9); M-SPIKE Not Observed g/dL (Not Observed)
[2019-12-04] MEDS: GABAPENTIN 100 MG CAPSULE GT SCH (08:06)
[2019-12-04] MEDS: MULTIVITAMINS,THERAPEUTIC TABLET GT SCH (08:06)
[2019-12-04] MEDS: ASPIRIN 81 MG TAB.CHEW GT SCH (08:06)
[2019-12-04] MEDS: Z GUARD REMEDY PASTE 57 GM TUBE TOP SCH (08:06)
[2019-12-04] MEDS: PANTOPRAZOLE ORAL SUSPENSION 40 MG SUSPDR.PKT GT SCH (08:06)
[2019-12-04] MEDS: FERROUS SULFATE 300 MG/5 ML LIQUID UDC GT SCH (08:07)
[2019-12-04] MEDS: IV NS 1000 ML 1,000 ML IV PRN (08:11)
--- NOTE | 2019-12-04 08:30 | NUR ---
Dr. Novak here to see pt. Full report given. New orders received.
--- NOTE | 2019-12-04 14:45 | NUR ---
Dr. Siddiqui here to see pt. Full report given. No new orders received.
--- NOTE | 2019-12-04 14:47 | NUR ---
Pt noted to be in asystole and apneic. Dr. Siddiqui called to return for confirmation of .
--- NOTE | 2019-12-04 14:50 | NUR ---
Pt pronounced at [address] Artur Johnson. Pt apneic for 5 minutes. Pupils fixed and dilated. No audible heart tones, breath sounds for 1 minute. No palpable pulses for 1 minute. No corneal reflexes. Enterprise Account Executive and Champ (daughter) aware. [employer] called case #[id number]. Awaiting return call from daughter for placement.
--- NOTE | 2019-12-04 16:20 | NUR ---
Spoke with Acosta from [facility]. Pt to be picked up within 60-90min. Services aware of pt's positivity for COVID.
--- NOTE | 2019-12-04 18:12 | NUR ---
Post-mortem care completed. Pt picked up by [facility] mortuary services.
== END 2019-12-04 14:50 | DRG 720 ==
LOC: ER 12:37 → TELE3 15:41 → CCU 12-02 18:00
PROVIDERS: ADMIT Internal Medicine; ATTEND Internal Medicine
PROC: 05HA33Z Insertion of Infusion Device into Left Brachial Vein, Percutaneous Approach (ICD-10-PCS; principal; 2019-12-03)
DX: A41.89 Other specified sepsis (principal); U07.1 COVID-19; I21.A1 Myocardial infarction type 2; E43 Unspecified severe protein-calorie malnutrition; J15.1 Pneumonia due to Pseudomonas; J96.01 Acute respiratory failure with hypoxia; N17.0 Acute kidney failure with tubular necrosis; G92 Toxic encephalopathy; I50.43 Acute on chronic combined systolic (congestive) and diastolic (congestive) heart failure; E87.1 Hypo-osmolality and hyponatremia; R13.10 Dysphagia, unspecified; J12.89 Other viral pneumonia; Z93.1 Gastrostomy status; E78.5 Hyperlipidemia, unspecified; Z95.1 Presence of aortocoronary bypass graft; I25.10 Atherosclerotic heart disease of native coronary artery without angina pectoris; Z66 Do not resuscitate; D63.8 Anemia in other chronic diseases classified elsewhere; D50.9 Iron deficiency anemia, unspecified; E11.65 Type 2 diabetes mellitus with hyperglycemia; N18.9 Chronic kidney disease, unspecified; N40.0 Benign prostatic hyperplasia without lower urinary tract symptoms; Z87.01 Personal history of pneumonia (recurrent); I69.354 Hemiplegia and hemiparesis following cerebral infarction affecting left non-dominant side; I13.0 Hypertensive heart and chronic kidney disease with heart failure and stage 1 through stage 4 chronic kidney disease, or unspecified chronic kidney disease; E11.22 Type 2 diabetes mellitus with diabetic chronic kidney disease; F01.50 Vascular dementia, unspecified severity, without behavioral disturbance, psychotic disturbance, mood disturbance, and anxiety; E11.51 Type 2 diabetes mellitus with diabetic peripheral angiopathy without gangrene; Z68.21 Body mass index [BMI] 21.0-21.9, adult; R19.5 Other fecal abnormalities
CPT/HCPCS: 36415; 36600; 51702; 70030-TC; 71045; 74018; 83550; 83605; 83615; 83735; 83970; 84100; 84155; 84165; 84443; 85025; 85610; 85730; 87040; 87070; 87077; 87086; 87400; 93005; 93307; A4217; A4663; G0378; J0456; J0696; J1815; J2270; J2405; J2543; J3490; J7030; J7040; J7050; J7060